=== PATIENT | male | born 1935 | race Caucasian/White ===

== ENCOUNTER 2018-01-16 08:59 | Emergency (ER) | payer MEDICARE, OTHER, SELFPAY ==
[2018-01-16 09:14] VITALS: BP 136/63; PULSE 60; RESP 14; TEMP 36.4; O2SAT 98
[2018-01-16 09:20] VITALS: PULSE 60
--- NOTE | 2018-01-16 09:22 | DI.RAD.S_ITS ---
PROCEDURE: XR FOOT LT MIN 3V INDICATIONS: pain below toes. swollen toes after striking foot on box TECHNIQUE: 3 views of the foot were acquired. COMPARISON: None. FINDINGS: Bones: Ill-defined, nondisplaced lucency seen only on one view at the base of the proximal first phalanx. No suspicious bony lesions. First MTP degenerative narrowing with subchondral sclerosis is present. Soft tissues: No tibiotalar joint effusion. Achilles tendon appears normal. IMPRESSION: Ill-defined lucency at the base of the proximal first phalanx. This is seen only on one view and could be artifactual. Recommend correlation of point tenderness at this area is of concern for fracture Dictated by: Malgorzata Fraser M.D. on 01/16/2018 at 9:40 Approved by: Malgorzata Fraser M.D. on 01/16/2018 at 9:43
--- NOTE | 2018-01-16 09:59 | ED_ITS ---
HPI - Extremity Injury (Lower) General Chief Complaint: Extremity Injury, Lower Stated Complaint: left foot pain History of Present Illness HPI Narrative: HPI 82-year-old male presents for evaluation of left 2nd toe pain that occurred after he stubbed his toe 3 days prior. Patient notes ongoing discomfort, has been taking acetaminophen. ROS with no recent constitutional symptoms. Exam Gen: Pleasant, nontoxic-appearing, resting comfortably. HEENT: NC, AT, PEERL, EOMI. Resp: Unlabored respirations with a normal work of breathing. Card: Extremities warm and well perfused. GI: Non-distended. : Deferred MSK: Left calf without visible or palpable trauma, muscle compartments soft and non-tender to palpation. Boone test with plantar flexion. No tenderness to palpation over the tibia or fibula. Ankle visually normal without ecchymosis inferior to the lateral malleolus. No tenderness over the posterior lateral malleolus, no tenderness over the posterior medial malleolus. Able to fully dorsiflex, plantarflex, apple, and invert the ankle with full functional range of motion . Foot visually normal without tenderness to palpation, specifically including the navicular bone and the base of the 5th metatarsal. Able flex and extend all toes, left 2nd toe with mid toe tenderness to palpation, mild subjective swelling, no erythema, warmth, brisk capillary refill with sensation intact to touch on the length of the toe. Muscle compartments of the foot are soft. Neurovascular 2+ DP and PT pulses. Sensation grossly intact to touch on the calf. Sensation intact to touch on all toes, first web space, the medial, lateral, plantar and dorsal surfaces of the foot. Neuro: AO x 3, no facial asymmetry, vision and hearing WNL. Heme/Lymph: Deferred Skin: Normal color with no visible lesions (other than noted above). Psych: Mood and affect appropriate. XR L Foot: ill-defined lucency at the base of the proximal first feelings. This is seen only on one view and could be artifactual. Recommend correlation with point tenderness at this area of concern for fracture. MDM Previous chart, nursing note, and vitals reviewed. A/P: 82-year-old male presents for evaluation of left 2nd toe pain that occurred after he stubbed his toe 3 days prior. CMS intact. Imaging without evidence of fracture (incidental findings noted, no corresponding tenderness), exam without evidence of infection. Instructed to use acetaminophen. Patient discharged with PCP follow-up as needed. Suspect contusion. Impression: left 2nd toe contusion (please reference below for remainder of encounter information) Related Data Home Medications Medication Instructions Recorded Confirmed MULTIVITAMIN (#THERAPEUTIC 1 cap PO QDAY #0 02/05/11 VITAMINS) [GLUCOSAMINE] QDAY #0 02/05/11 esomeprazole magnesium [Nexium] 40 mg PO QDAY #0 02/05/11 furosemide 80 mg QDAY #0 09/15/16 ACETAMINOPHEN #0 01/07/17 ferrous sulfate [Iron (ferrous PO QDAY #0 01/07/17 sulfate)] Previous Rx's Medication Instructions Recorded lisinopril 5 mg PO QDAY #30 tab 01/08/17 warfarin [Coumadin] 5 mg PO QDAY #30 tab 01/08/17 Allergies Allergy/AdvReac Type Severity Reaction Status Date / Time No Known Drug Allergies Allergy Verified 01/16/18 09:17 [facility] Social History Smoking Status: Former smoker Exam Initial Vital Signs Initial Vital Signs: Vital Signs Temperature 97.5 F L 01/16/18 09:14 Pulse Rate 60 01/16/18 09:14 Respiratory Rate 14 01/16/18 09:14 Blood Pressure 136/63 H 01/16/18 09:14 Pulse Oximetry 98 01/16/18 09:14 Course Orders Ordered: ED Orders 01/16/18 09:22 XR foot LT min 3V Stat Vital Signs - 8 hr 01/16/18 09:14 01/16/18 09:20 Temperature 97.5 F L Pulse Rate 60 Pulse Rate [Left Dorsalis Pedis] 60 Respiratory Rate 14 Blood Pressure 136/63 H Pulse Oximetry 98 Discharge Plan Departure Prescriptions: No Action MULTIVITAMIN (#THERAPEUTIC VITAMINS) 1 cap PO QDAY Qty: 0 RF: 0 [GLUCOSAMINE] QDAY Qty: 0 RF: 0 esomeprazole magnesium [Nexium] 40 MG capsule,delayed release(DR/EC) 40 mg PO QDAY Qty: 0 RF: 0 furosemide 80 MG tablet 80 mg QDAY Qty: 0 RF: 0 ACETAMINOPHEN Qty: 0 RF: 0 ferrous sulfate [Iron (ferrous sulfate)] 325 mg (65 mg iron) Tablet PO QDAY Qty: 0 RF: 0 lisinopril 5 MG tablet 5 mg PO QDAY Qty: 30 RF: 0 warfarin [Coumadin] 5 MG tablet 5 mg PO QDAY Qty: 30 RF: 0
== END 2018-01-16 10:09 | disposition home or self-care (01) ==
PROVIDERS: Emergency Provider Emergency Medicine; Family Provider Internal Medicine; PCP Internal Medicine
DX: S90.212A Contusion of left great toe with damage to nail, initial encounter (principal); W22.09XA Striking against other stationary object, initial encounter
CPT/HCPCS: 73630; 99282; 99283